=== PATIENT | female | born 1985 | race Caucasian/White ===

== ENCOUNTER → 2016-07-20 | Outpatient (CLI) | payer BC, SELFPAY ==
[~2016-07-20] MED LIST: FLEXERIL10 MG PO; NORCO 5-325 TA1 EACH PO; PHENERGAN25 M1 PO; PLAQUENIL200 M1 PO; PLAQUENIL200 MG PO; PRILOSEC20 MG PO; PROTONIX40 MG PO; RANITIDINE HCL150 MG PO; TYLENOL EXTRA500 MG PO; VITAMIN D1000 UNI1 PO
== END | disposition disaster alternative care site (69) ==
LOC: GRAD 10:48
DX: R10.9 Unspecified abdominal pain (principal); D18.03 Hemangioma of intra-abdominal structures; K76.0 Fatty (change of) liver, not elsewhere classified; M47.896 Other spondylosis, lumbar region; M43.17 Spondylolisthesis, lumbosacral region
CPT/HCPCS: Q9967

== ENCOUNTER → 2016-07-26 | Day surgery (SDC) | payer BC, SELFPAY ==
[~2016-07-26] VITALS: Ht 160 cm; Wt 81.3 kg
== END | disposition disaster alternative care site (69) ==
LOC: GPOC 07-17 15:00 → GEND 08:56 → GPOC 15:00
PROC: 0DB68ZX Excision of Stomach, Via Natural or Artificial Opening Endoscopic, Diagnostic (ICD-10-PCS; principal; 2016-07-26)
DX: K31.7 Polyp of stomach and duodenum (principal); G43.909 Migraine, unspecified, not intractable, without status migrainosus; K21.9 Gastro-esophageal reflux disease without esophagitis; F41.9 Anxiety disorder, unspecified; F41.0 Panic disorder [episodic paroxysmal anxiety]; J45.909 Unspecified asthma, uncomplicated; M32.9 Systemic lupus erythematosus, unspecified; M19.90 Unspecified osteoarthritis, unspecified site; Z90.49 Acquired absence of other specified parts of digestive tract; Z90.710 Acquired absence of both cervix and uterus; Z98.890 Other specified postprocedural states; Z91.040 Latex allergy status; Z88.2 Allergy status to sulfonamides; Z88.1 Allergy status to other antibiotic agents; Z91.018 Allergy to other foods; Z79.899 Other long term (current) drug therapy
CPT/HCPCS: J2001; J7030